=== PATIENT | male | born 1980 ===

== ENCOUNTER 2024-11-19 17:20 | Emergency (ER) | payer MEDICAID, SELFPAY ==
[2024-11-19 17:41] VITALS: BP 140/114; BP 163/90; PULSE 62; PULSE 68; RESP 16; TEMP 36.2; O2SAT 100; BMI 40.7
--- NOTE | 2024-11-19 17:50 | PC.NURSE ---
PT BELONGINGS locked in [facility] on shelf 2 knife changer completed by Hayley PINEDA, Lion DELGADO, Ryan Casey
[2024-11-19 17:52] VITALS: BP 140/114; PULSE 65; RESP 14; TEMP 36.5; O2SAT 98
--- NOTE | 2024-11-19 17:53 | ED.GENADULT ---
HPI - General Adult General Chief complaint: Overdose Stated complaint: OD, 4 mg narcan given by PD Time Seen by Provider: 11/19/24 17:23 Source: patient, RN notes reviewed and old records reviewed Mode of arrival: EMS Limitations: no limitations History of Present Illness ED Provider: Rickey MICHELLE narrative: 44-year-old male presents for evaluation of reported substance abuse. EMS reports that the patient was found unconscious in his car in the middle of an intersection. Police were on scene and administered Narcan 4 mg intranasally. The patient immediately had good response to the Narcan and awakened. In the ER he does admit to opiate abuse and denies self-harm He has no complaints Related Data Allergies Allergy/AdvReac Type Severity Reaction Status Date / Time No Known Allergies Allergy Verified 11/19/24 17:44 Review of Systems Constitutional: Constitutional: Denies body ache(s), Denies chills and Denies headache(s) Eyes: Eyes: Denies blurry vision ENT: Denies vertigo, Denies dizziness and Denies headache(s) Cardiovascular: Cardiovascular: Denies chest pain and Denies dyspnea Respiratory: Respiratory: Denies cough and Denies dyspnea Gastrointestinal: Gastrointestinal: Denies abdominal pain, Denies nausea and Denies vomiting Musculoskeletal: Musculoskeletal: Denies back pain Integumentary/Breasts: Skin/Breast: Denies rash Neurologic: Denies vertigo, Denies dizziness and Denies headache(s) Psychiatric: Psychiatric: Denies anxiety and Denies depression PMFSH Social History Social History Alcohol intake: never Smoked in Last 30 Days: No Use of substances other than those prescribed or required for medical reasons: Yes Substance Use Type: Unknown Last Used Substance: Just Prior to Admission Any prior treatment program specific to substance use: No Advance Directives: No Advance Directives Information Provided: No Do you have a plan to hurt others: No Plan Physical Exam ED Vital Signs: Vital Signs - 24 hr 11/19/24 17:41 11/19/24 17:52 Temperature 97.1 F 97.7 F Pulse Rate 62 65 Respiratory Rate 16 14 Blood Pressure 140/114 H 140/114 H Pulse Oximetry 100 98 Oxygen Delivery Method Room Air Room Air BMI result Body Mass Index 40.7 Const General: healthy appearing, comfortable, no acute distress, alert and awake Nutritional Appearance: well nourished Orientation/consciousness: patient oriented x3 HENMT Head: Yes normocephalic and Yes atraumatic Eyes Eyelids: Yes eyelids normal Conjunctivae: conjunctivae normal Sclerae: sclerae normal Corneas: corneas normal Pupils: Equal, round and reactive pupils present EOM: EOMs intact bilaterally Neck Neck: Yes full ROM Resp Effort & Inspection: normal respiratory effort, able to speak in complete sentences and not labored Cardio Rate: regular rate Rhythm: regular rhythm GI Inspection: No distended Palpation (GI): Soft to palpation, not firm, nontender, no guarding and not rigid Skin General skin exam: elasticity normal Neuro General: patient oriented x3 Cranial nerves: Yes CN's II-XII intact bilaterally, Yes Equal, round and reactive pupils present and Yes Bilaterally intact EOM present Cognition (Neuro): normal cognition Extrem Other: Moving all extremities well without any obvious deformities Course Reevaluation(s) Reevaluation #1: Patient resting comfortably, no issues. Vital signs remained stable. The patient reports that he does not feel ready to be discharged home Time: 20:59 Medications Administered Discontinued Medications Generic Name Dose Route Start Last Admin Trade Name Alicia PRN Reason Stop Dose Admin Naloxone HCl 4 mg 11/19/24 18:48 11/19/24 20:03 Naloxone Hcl Nasal 4 Mg [place] NOSTRILALT 11/19/24 18:49 4 mg ONCE ONE Administration Medical Decision Making Medical Decision Making MDM Narrative: 44-year-old male presents for evaluation after a suspected drug overdose. The patient responded well to Narcan 4 mg intranasally. He is awake, alert and oriented and admitting to opiate abuse. He reports that he injects heroin and fentanyl. He admits that he was using recreationally today and did not intentionally overdose. He denies any self-harm tendencies in his not depressed or suicidal. He has no complaints except that he is hungry. Plan for observation Differential Diagnosis Differential Diagnoses: The differential diagnosis associated with the presentation includes Substance abuse Overdose Opiate abuse Polysubstance abuse Discharge Plan Discharge Clinical Impression: Opioid abuse Patient Disposition: Home, Self-Care Instructions: Opioid Use Disorder (ED) Additional Instructions: Overdose You were seen in our Emergency Department for an overdose today. You received narcan in order to reverse the effects of overdose. Narcan only lasts about 45 min to 1 hour in the system. You may have been given narcan to take home with you today, please keep it near you if you are going to use again, so others can use it if needed.? The number one risk for fatal overdose is using alone? [facility] is a / hotline where you can be on the phone with someone while you use, and they can call for help if they suspect an overdose: [phone] Things to look out for when you leave include severe vomiting or diarrhea, headaches, muscle cramps, fever, coughing, chest pain, or if you feel so short of breath you cannot walk to the bathroom. Please seek care and return any time for worsening symptoms.? You may have been provided with safer injection?items, please take time to take care of YOU and your health. Use new supplies whenever possible to lessen the chances of infections and other illnesses.? If you need more supplies, please go [facility],? [address] [place] [address] OR you can call or text to coordinate delivery of safer supplies. If you decide you want to stop or cut down on how much you?re using, please call the numbers on the list provided to you or you can come to our outpatient Addiction Treatment office [facility] (M-F 9am-5p) [address] [facility], [address] [place] [address]. [phone] Print Language: Hebrew
--- NOTE | 2024-11-19 18:00 | PC.NURSE ---
Patient brought in to ED by EMS/PD, suggested OD in an intersection. Patient was given narcan in route, patient became alert and responsive. Denies pain, Denies SOB, Patient changed over. Belongings in [employer] shelf 2. VSS and up to date. Plan of care on going
[2024-11-19] MEDS: Naloxone HCl Nasal 4 MG SPRAY NOSTRILALT (20:03)
--- NOTE | 2024-11-19 20:17 | PC.NURSE ---
this rn assumed care of pt, pt resting in stretcher, sleeping but alert to name, respirations even and unlabored. per zak tijerina, allow pt to rest until able to ambulate. vss. take home narcan given to pt per aug.
--- NOTE | 2024-11-19 20:59 | PC.NURSE ---
attempted to dc pt at this time, pt states he still feels dizzy and would like to stay a bit longer. zak tijerina aware.
[2024-11-19 21:10] VITALS: BP 127/64; PULSE 62; RESP 16; TEMP 36.5; O2SAT 95
--- NOTE | 2024-11-19 23:11 | PC.NURSE ---
pt mother contacted at this time for transport home.
[2024-11-19 23:57] VITALS: BP 130/78; PULSE 88; RESP 17; TEMP 36.9; O2SAT 99
== END 2024-11-19 23:58 | disposition home or self-care (01) ==
PROVIDERS: Emergency Provider Emergency Medicine
DX: T40.1X1A Poisoning by heroin, accidental (unintentional), initial encounter (principal); R40.2A Nontraumatic coma due to underlying condition; Y92.410 Unspecified street and highway as the place of occurrence of the external cause; F11.10 Opioid abuse, uncomplicated
CPT/HCPCS: 99285